=== PATIENT | female | born 2000 | race Caucasian/White ===

== ENCOUNTER 2022-10-13 10:57 | Outpatient (CLI) | payer BC ==
[2022-10-13 11:47] LABS: Hematocrit 38.2 % (34.9-44.5)
[2022-10-13 11:50] LABS: BHCG - Serum Negative (NEGATIVE); Pregs Control Background? CLEAR/WHITE (CLR/WHITE); Pregs Control Bar Appear? YES (CONTROL BAR)
== END 2022-10-13 10:58 | disposition home or self-care (01) ==
LOC: LABBT 10:57
PROVIDERS: ATTEND Specialist
DX: Z01.812 Encounter for preprocedural laboratory examination (principal); J38.00 Paralysis of vocal cords and larynx, unspecified
CPT/HCPCS: 84703; 85014

== ENCOUNTER 2022-10-15 09:13 | Day surgery (SDC) | payer BC ==
[2022-10-13 11:22] VITALS: BMI 28.3
[2022-10-15] MEDS ORDERED: EPINEPHrine 1 MG/ML AMP ONE (11:19)
[2022-10-15] MEDS ORDERED: fentaNYL PF 100 MCG/2 ML SYRINGE ONE (11:22)
[2022-10-15] MEDS ORDERED: SUGAMMADEX SODIUM 200 MG/2 ML VIAL ONE (11:22)
[2022-10-15] MEDS ORDERED: Lidocaine 1% PF 5 ML VIAL ONE (12:42)
[2022-10-15] MEDS ORDERED: Rocuronium Bromide 10 MG/ML (10ML VIAL) ONE (12:42)
[2022-10-15] MEDS ORDERED: Dexamethasone 20 MG/5 ML VIAL ONE (12:42)
[2022-10-15] MEDS ORDERED: Ondansetron PF 4 MG/2 ML Vial ONE (12:42)
[2022-10-15] MEDS ORDERED: PROPOFOL 200 MG/20 ML VIAL ONE (12:42)
[2022-10-15] MEDS ORDERED: Midazolam HCl 2 mg/2 ml Vial ONE (12:45)
== END 2022-10-15 14:35 | disposition home or self-care (01) ==
LOC: SDC 09:13
PROVIDERS: ATTEND Specialist
PROC: 3E0F8GC Introduction of Other Therapeutic Substance into Respiratory Tract, Via Natural or Artificial Opening Endoscopic (ICD-10-PCS; principal; 2022-10-15)
DX: J38.01 Paralysis of vocal cords and larynx, unilateral (principal); J30.89 Other allergic rhinitis; R49.0 Dysphonia
CPT/HCPCS: C1776; J0171; J1100; J2250; J2405; J2704